=== PATIENT | female | born 1970 | race American Indian/Alaskan Native ===

== ENCOUNTER 2018-08-29 10:23 | Outpatient (CLI) | payer OTHER ==
--- NOTE | 2018-08-29 15:40 | XRay Report ---
PROCEDURE: XR SPINE LUMBOSACRAL 2-3V TECHNIQUE: AP and lateral view of the lumbar spine were obtained. HISTORY: TENDINITIS LEFT SHOULDER, LEFT HAND SURGERY, DISABILITY EXAM COMPARISONS: None FINDINGS: No fracture or subluxation is seen. There is mild disc space narrowing at the L4-5 level with small a nterior osteophytic spurs noted. Anterior osteophytic spurring is also noted in the lower thoracic sp ine. There appears to be mild facet arthritis at L4-5 and L5-S1 articular facets. SI joints are unrem arkable. Small metallic coils are visualized left upper quadrant also the left side of the pelvis whi ch may represent mesh. IMPRESSION: Mild degenerative disc disease L4-5 level. Degenerative changes also visualized lower thoracic spine. Mild facet arthritis L4-5, L5-S1. Surgical mesh is suspected left upper quadrant in the left side of the pelvis. This document is electronically signed by Sukhdeep Garsia MD., August 29 2018 03:38:37 PM ET
--- NOTE | 2018-08-30 00:28 | XRay Report ---
PROCEDURE: XR KNEE 1-2V LT TECHNIQUE: 2 views of the left knee obtained. HISTORY: TENDINITIS LEFT SHOULDER, LEFT HAND SURGERY, DISABILITY EXAM COMPARISONS: None FINDINGS: No acute fracture or dislocation. Moderate to severe tricompartmental osteoarthritis noted. IMPRESSION: Moderate to severe tricompartmental osteoarthritis.. This document is electronically signed by Toribio Naranjo MD., August 30 2018 12:25:55 AM ET
== END 2018-08-29 10:24 | disposition home or self-care (01) ==
LOC: XRAY 10:23
PROVIDERS: ATTEND Internal Medicine
DX: Z02.71 Encounter for disability determination (principal); M17.12 Unilateral primary osteoarthritis, left knee; M51.36 Other intervertebral disc degeneration, lumbar region; M48.061 Spinal stenosis, lumbar region without neurogenic claudication
CPT/HCPCS: 72100